=== PATIENT | male | born 1945 | race African-American/Black ===

== ENCOUNTER 2019-06-28 06:47 | Inpatient (IN) ==
[2019-06-22 13:36] LABS: Basophils % 0.4 % (0.0-0.8); Eosinophils # 0.1 10*3/uL (0.0-0.87); Eosinophils % 1.6 % (0.00-10.9); Hematocrit 44.4 VOL% (42.0-52.0); Hemoglobin 14.4 GM/DL (14.0-18.0); Immature Granulocytes % 0.4 %; Immature Granulocytes Absolute 0.02 #; Lymphocytes % 35.4 % (21.2-54.2); Mean Corpuscular HGB Conc 32.4 GM/DL (32-36); Mean Corpuscular Volume 93.5 FL (87-102); Mean Platelet Volume 9.1 FL (9.6-12.0); Monocytes % 9.7 % (1.7-12.7); Neutrophils % 52.5 % (38.7-73.9); Platelet Count 169 T/CUMM (130-400); Red Blood Count 4.75 MC/CUMM (3.8-5.5); Red Cell Distribution Width 13.6 % (9.3-17.3); White Blood Count 5.6 T/CUMM (4-12)
[2019-06-22 14:02] LABS: Albumin 3.7 G/DL (3.4-5.0); Bilirubin,Total 0.4 MG/DL (0.2-1.0); Calcium 9.3 MG/DL (8.5-10.1); Osmolality,Calculated 268.1 MOS/KG (273-304); Total Protein 7.2 G/DL (6.4-8.3)
[~2019-06-28 06:47] MED LIST: HEPARIN 5,000 UNIT/1 ML VIAL ONE; LIDOCAINE 1% 20 ML VIAL ONE; ceFAZolin 1,000 MG VIAL ONE; ceFAZolin 1,000 MG in SYRINGE 1 EACH IV ONE
[2019-06-28] MEDS ORDERED: PHENYLEPHRINE DRIP 20 MG/250 ML PREMIX IV ONE ×2 (07:30→10:47)
[2019-06-28] MEDS ORDERED: fentaNYL 100 MCG/2 ML VIAL ONE (07:31)
[2019-06-28] MEDS ORDERED: NITROGLYCERIN DRIP 50 MG/250 ML BOTTLE IV ONE (07:31)
[2019-06-28] MEDS ORDERED: ROPIVACAINE 0.5% 30 ML VIAL ONE (07:31)
[2019-06-28] MEDS ORDERED: HEPARIN/NACL 0.9% 2 UNITS/ML 500 ML IV ONE (07:31)
[2019-06-28] MEDS ORDERED: DEXAMETHASONE 4 MG/1 ML VIAL ONE (07:31)
[2019-06-28] MEDS ORDERED: MIDAZOLAM 2 MG/2 ML VIAL ONE (07:31)
[2019-06-28] MEDS ORDERED: EPINEPHrine 1 MG/ML VIAL ONE (07:31)
[2019-06-28] MEDS ORDERED: ALBUTEROL/IPRATROPIUM 3 ML NEB RESP TX STA (07:34)
[2019-06-28] MEDS: LACTATED RINGERS 1,000 ML IV SCH ×2 (07:45→11:40)
[2019-06-28] MEDS ORDERED: DEXMEDETOMIDINE 200 MCG/2 ML VIAL ONE (08:00)
[2019-06-28] MEDS ORDERED: SUGAMMADEX 200 MG/2 ML VIAL IV ONE (10:15)
[2019-06-28] MEDS ORDERED: oxyCODONE/ACETAMINOPHEN 5-325 MG TABLET PO PRN (10:29)
[2019-06-28] MEDS ORDERED: ONDANSETRON 4 MG/2 ML VIAL IV PRN (10:29)
[2019-06-28] MEDS ORDERED: GLUCAGON 1 MG VIAL IM PRN (10:29)
[2019-06-28] MEDS ORDERED: HYDROmorphone 2 MG/1 ML VIAL IV PRN ×2 (10:29)
[2019-06-28] MEDS ORDERED: PROMETHAZINE 25 MG/1 ML VIAL IM PRN (10:29)
[2019-06-28] MEDS ORDERED: NALOXONE 0.4 MG/ML VIAL IV PRN (10:29)
[2019-06-28] MEDS ORDERED: propofoL 200 MG/20 ML VIAL IV ONE (10:47)
[2019-06-28] MEDS ORDERED: DESFLURANE 1 UNIT/15 MINUTE INH ONE (10:47)
[2019-06-28] MEDS ORDERED: LIDOCAINE 2% 5 ML VIAL ONE (10:47)
[2019-06-28] MEDS ORDERED: HEPARIN 10,000 UNIT/10 ML VIAL ONE (10:47)
[2019-06-28] MEDS ORDERED: KETOROLAC 30 MG/1 ML VIAL ONE (10:48)
[2019-06-28] MEDS ORDERED: ETOMIDATE 40 MG/20 ML VIAL IV ONE (10:48)
[2019-06-28] MEDS ORDERED: ROCURONIUM 100 MG/10 ML VIAL IV ONE (10:48)
[2019-06-28] MEDS ORDERED: LACTATED RINGERS 2,000 ML IV ONE (10:48)
[2019-06-28] MEDS ORDERED: PROTAMINE SULFATE 50 MG/5 ML VIAL IV ONE (10:48)
[2019-06-28] MEDS ORDERED: DEXTROSE 10% 250 ML BAG IV PRN (11:39)
[2019-06-28] MEDS: PHENYLEPHRINE DRIP 40 MG/250 ML PREMIX IV SCH (11:40)
[2019-06-28] MEDS ORDERED: ALBUTEROL 2.5 MG/3 ML NEB RESP TX PRN (11:41)
[2019-06-28] MEDS: NITROPRUSSIDE 100 MG in DEXTROSE 5% 250 ML IV SCH (13:09)
[2019-06-28] MEDS ORDERED: TAMSULOSIN 0.4 MG CAPSULE PO SCH (21:00)
[2019-06-28] MEDS ORDERED: NON-FORMULARY MEDICATION (Tiotropium Bromide [Spiriva Respimat] 2 PUFF) INH SCH (21:00)
[2019-06-28] MEDS: FLUTICASONE 50 MCG NASAL SPRAY 16 GM BOTTLE BOTH NARES SCH (21:38)
[2019-06-28] MEDS: BUDESONIDE/FORMOTEROL 80-4.5 INHALER 6.9 GM INH SCH (21:38)
[2019-06-28] MEDS: atenoloL 25 MG TABLET PO SCH (21:39)
[2019-06-28] MEDS: GABAPENTIN 100 MG CAPSULE PO SCH (21:39)
[2019-06-29] MEDS: oxyCODONE/ACETAMINOPHEN 5-325 MG TABLET PO PRN ×2 (00:30→07:20)
[2019-06-29] MEDS: LACTATED RINGERS 1,000 ML IV SCH ×2 (00:33→08:54)
[2019-06-29] MEDS ORDERED: hydroCHLOROthiazide 25 MG TABLET PO SCH (09:00)
[2019-06-29] MEDS ORDERED: SIMVASTATIN 40 MG TABLET PO SCH (09:00)
[2019-06-29] MEDS ORDERED: CLOPIDOGREL 75 MG TABLET PO SCH ×2 (09:00)
[2019-06-29] MEDS: GABAPENTIN 100 MG CAPSULE PO SCH (09:06)
[2019-06-29] MEDS: atenoloL 25 MG TABLET PO SCH (09:06)
[2019-06-29] MEDS: BUDESONIDE/FORMOTEROL 80-4.5 INHALER 6.9 GM INH SCH (09:12)
[2019-06-29] MEDS: FLUTICASONE 50 MCG NASAL SPRAY 16 GM BOTTLE BOTH NARES SCH (09:13)
[2019-06-29] MEDS: PHENYLEPHRINE DRIP 40 MG/250 ML PREMIX IV SCH (09:44)
[2019-06-29] MEDS: NITROPRUSSIDE 100 MG in DEXTROSE 5% 250 ML IV SCH (09:45)
[2019-06-29] MEDS ORDERED: metFORMIN 500 MG TABLET PO SCH (10:59)
[2019-06-29 12:32] VITALS: BP 124/56
== END 2019-06-29 14:39 | disposition home or self-care (01) | DRG 39 ==
LOC: N.OR 06:47 → N.SDSINP 06:48 → N.ICU 11:33 → EDSTATUS 11:45 → N.4E 06-29 10:17
PROVIDERS: ADMIT Surgery; ATTEND Surgery

== ENCOUNTER 2022-06-10 15:06 | Observation (INO) ==
[2022-06-10] MEDS ORDERED: SODIUM CHLORIDE 0.9% 1,000 ML IV STA (16:25)
[2022-06-10 17:07] LABS: Basophils % 0.2 % (0.0-0.8); Eosinophils % 0.2 % (0.00-10.9); Hematocrit 49.7 VOL% (42.0-52.0); Hemoglobin 16.2 GM/DL (14.0-18.0); Immature Granulocytes % 0.7 %; Immature Granulocytes Absolute 0.04 #; Lymphocytes # 1.2 10*3/uL (1.4-4.0); Lymphocytes % 19.5 % (21.2-54.2); Mean Corpuscular HGB Conc 32.6 GM/DL (32-36); Mean Corpuscular Volume 88.9 FL (87-102); Mean Platelet Volume 9.3 FL (9.6-12.0); Monocytes # 0.6 10*3/uL (0.11-0.8); Monocytes % 10.1 % (1.7-12.7); Neutrophils % 69.3 % (38.7-73.9); Platelet Count 198 T/CUMM (130-400); Red Blood Count 5.59 MC/CUMM (3.8-5.5); Red Cell Distribution Width 15.6 % (9.3-17.3); White Blood Count 6.04 T/CUMM (4-12)
[2022-06-10 18:01] LABS: Glucose,Urine (UA) Negative (Negative); Ketones,Urine 40 mg/dL (Negative); Protein,Urine 30 mg/dL (Negative); Urine Appearance Clear (Clear); Urine Color Yellow (Yellow); Urine Specific Gravity >= 1.030 (1.001-1.035)
[2022-06-10 18:02] LABS: Bilirubin,Urine Small mg/dL (Negative); Blood, Urine Negative (Negative); Nitrite,Urine Negative (Negative); Urine Urobilinogen < 2.0 eU/dL (<2.0)
[2022-06-10 18:03] LABS: Hyaline Casts,Urine 3 /LPF (0-3); Mucus,Urine Occasional /LPF (Occasional); RBC,Urine 1 /HPF (0-4); Squamous Epithelial Cell,Urine Occasional /HPF (0-10)
[2022-06-10 18:18] LABS: Albumin 3.6 G/DL (3.4-5.0); Bilirubin,Total 0.9 MG/DL (0.20-1.00); Calcium 9.5 MG/DL (8.5-10.1); Osmolality,Calculated 283.8 MOS/KG (273-304); Potassium 3.9 MMOL/L (3.5-5.1); Total Protein 7.1 G/DL (6.4-8.2)
[2022-06-10] MEDS ORDERED: diphenhydrAMINE CAP 25 MG CAPSULE PO PRN (22:14)
[2022-06-10] MEDS ORDERED: ONDANSETRON 4 MG/2 ML VIAL IV PRN (22:14)
[2022-06-10] MEDS ORDERED: hydrALAZINE 20 MG/1 ML VIAL IV PRN (22:14)
[2022-06-10] MEDS ORDERED: ALBUTEROL/IPRATROPIUM 3 ML NEB RESP TX PRN (22:14)
[2022-06-10] MEDS ORDERED: ACETAMINOPHEN 325 MG TABLET PO PRN (22:14)
[2022-06-10] MEDS ORDERED: MORPHINE 2 MG/1 ML SYRINGE IV PRN (22:14)
[2022-06-10] MEDS ORDERED: guaiFENesin/DM ER 600-30 MG TABLET PO PRN (22:14)
[2022-06-10] MEDS ORDERED: NICOTINE 21 MG/24 HR PATCH TRANSDERM PRN (22:14)
[2022-06-10] MEDS ORDERED: SODIUM CHLORIDE 0.9% 1,000 ML IV ONE (22:16)
[2022-06-11] MEDS: SODIUM CHLORIDE 0.9% 1,000 ML IV SCH ×3 (00:26→21:03)
[2022-06-11 05:29] LABS: Basophils % 0.4 % (0.0-0.8); Eosinophils # 0.1 10*3/uL (0.0-0.87); Eosinophils % 1.2 % (0.00-10.9); Hematocrit 36.1 VOL% (42.0-52.0); Hemoglobin 12.2 GM/DL (14.0-18.0); Immature Granulocytes % 0.4 %; Immature Granulocytes Absolute 0.02 #; Lymphocytes # 0.6 10*3/uL (1.4-4.0); Lymphocytes % 13.1 % (21.2-54.2); Mean Corpuscular HGB Conc 33.8 GM/DL (32-36); Mean Platelet Volume 9.7 FL (9.6-12.0); Monocytes # 0.6 10*3/uL (0.11-0.8); Monocytes % 12.1 % (1.7-12.7); Neutrophils % 72.8 % (38.7-73.9); Platelet Count 187 T/CUMM (130-400); Red Cell Distribution Width 15.5 % (9.3-17.3); White Blood Count 4.87 T/CUMM (4-12)
[2022-06-11 05:55] LABS: Calcium 8.7 MG/DL (8.5-10.1); Osmolality,Calculated 283.5 MOS/KG (273-304); Potassium 3.9 MMOL/L (3.5-5.1)
[2022-06-11] MEDS: BISACODYL 5 MG TABLET PO SCH (09:02)
[2022-06-11] MEDS: PANTOPRAZOLE 40 MG TABLET PO SCH (09:02)
[2022-06-11] MEDS: HEPARIN 5,000 UNIT/1 ML VIAL SUBCUT SCH ×2 (09:03→21:04)
[2022-06-11] MEDS ORDERED: ALBUTEROL 2.5 MG/3 ML NEB RESP TX PRN (14:20)
[2022-06-11 14:43] LABS: Folate 5.23 NG/ML (5.38-24.0); Vitamin B12 > 2000 PG/ML (211-911)
[2022-06-11 15:30] LABS: Risk Ratio 4.47; Thyroid Stimulating Hormone 1.24 uIU/ml (0.358-3.74); VLDL Cholesterol 23.4 MG/DL
[2022-06-11] MEDS ORDERED: TAMSULOSIN 0.4 MG CAPSULE PO SCH (19:00)
[2022-06-11] MEDS: IPRATROPIUM 500 MCG/2.5 ML NEB RESP TX SCH (19:00)
[2022-06-11] MEDS ORDERED: MIRTAZAPINE 15 MG TABLET PO SCH (21:00)
[2022-06-11] MEDS ORDERED: atenoloL 25 MG TABLET PO SCH (21:00)
[2022-06-11] MEDS: MEMANTINE 5 MG TABLET PO SCH (21:04)
[2022-06-11] MEDS: GABAPENTIN 100 MG CAPSULE PO SCH (21:04)
[2022-06-11] MEDS: FLUTICASONE 50 MCG NASAL SPRAY 16 GM BOTTLE BOTH NARES SCH (21:05)
[2022-06-11] MEDS: BUDESONIDE/FORMOTEROL 80-4.5 INHALER 6.9 GM INH SCH (21:09)
[2022-06-12 04:57] LABS: Basophils % 0.3 % (0.0-0.8); Eosinophils # 0.1 10*3/uL (0.0-0.87); Eosinophils % 1.9 % (0.00-10.9); Hematocrit 34.8 VOL% (42.0-52.0); Hemoglobin 11.4 GM/DL (14.0-18.0); Immature Granulocytes % 0.5 %; Immature Granulocytes Absolute 0.02 #; Lymphocytes # 0.7 10*3/uL (1.4-4.0); Lymphocytes % 17.9 % (21.2-54.2); Mean Corpuscular HGB Conc 32.8 GM/DL (32-36); Mean Corpuscular Volume 87.7 FL (87-102); Mean Platelet Volume 9.1 FL (9.6-12.0); Monocytes # 0.5 10*3/uL (0.11-0.8); Monocytes % 14.6 % (1.7-12.7); Neutrophils % 64.8 % (38.7-73.9); Platelet Count 169 T/CUMM (130-400); Red Blood Count 3.97 MC/CUMM (3.8-5.5); Red Cell Distribution Width 15.5 % (9.3-17.3); White Blood Count 3.69 T/CUMM (4-12)
[2022-06-12 05:16] LABS: Osmolality,Calculated 283.1 MOS/KG (273-304); Potassium 4.4 MMOL/L (3.5-5.1)
[2022-06-12] MEDS: IPRATROPIUM 500 MCG/2.5 ML NEB RESP TX SCH ×3 (07:03→15:03)
[2022-06-12] MEDS ORDERED: SERTRALINE 100 MG TABLET PO SCH (09:00)
[2022-06-12] MEDS ORDERED: CLOPIDOGREL 75 MG TABLET PO SCH (09:00)
[2022-06-12] MEDS ORDERED: SIMVASTATIN 40 MG TABLET PO SCH (09:00)
[2022-06-12] MEDS: BISACODYL 5 MG TABLET PO SCH (09:57)
[2022-06-12] MEDS: PANTOPRAZOLE 40 MG TABLET PO SCH (09:57)
[2022-06-12] MEDS: MEMANTINE 5 MG TABLET PO SCH (09:57)
[2022-06-12] MEDS: GABAPENTIN 100 MG CAPSULE PO SCH (09:57)
[2022-06-12] MEDS: FLUTICASONE 50 MCG NASAL SPRAY 16 GM BOTTLE BOTH NARES SCH (09:59)
[2022-06-12] MEDS: HEPARIN 5,000 UNIT/1 ML VIAL SUBCUT SCH (09:59)
[2022-06-12] MEDS: BUDESONIDE/FORMOTEROL 80-4.5 INHALER 6.9 GM INH SCH (09:59)
[2022-06-12] MEDS: SODIUM CHLORIDE 0.9% 1,000 ML IV SCH (10:01)
[2022-06-12] MEDS: NYSTATIN 500,000 UNIT/5 ML UDCUP SWISH/SWAL SCH ×2 (12:58→17:31)
[2022-06-12 17:11] VITALS: BP 105/62
[2022-06-13] MEDS ORDERED: FOLIC ACID 1 MG TABLET PO SCH (09:00)
== END 2022-06-12 18:15 | disposition home health service (06) ==
LOC: N.ED 15:06 → N.EDINP 15:06 → SUATTDRO 22:14 → N.TELEN 06-11 02:34
PROVIDERS: ADMIT Internal Medicine; ATTEND Internal Medicine